=== PATIENT | female | born 1950 | race Caucasian/White ===

== ENCOUNTER → 2016-11-05 | Day surgery (SDC) | payer MEDICARE, OTHER ==
[~2016-11-05] MED LIST: ASPI81TA50 PO; CHOL100013 PO; CYAN10005 PO; DOXY40CP PO; ESTR1TAB4 PO; FLUT100D IH; IV RINGERS,LACTATED 1000ML 1,000 ML IV SCH; LEVO125T5 PO; LISI10TA2 PO; LORA10TA68 PO; PRAM0.255 PO; PROPOFOL 20 ML IV ONE; SERT100T PO; SUMA1TAB2 PO
[2016-11-05 10:45] VITALS: BP 143/79
== END | disposition home or self-care (01) ==
LOC: SURG 08:25
PROVIDERS: ATTEND Internal Medicine Gastroenterology
DX: Z12.11 Encounter for screening for malignant neoplasm of colon (principal); K64.0 First degree hemorrhoids; I10 Essential (primary) hypertension; E03.9 Hypothyroidism, unspecified; F32.9 Major depressive disorder, single episode, unspecified; F17.200 Nicotine dependence, unspecified, uncomplicated; Z86.39 Personal history of other endocrine, nutritional and metabolic disease
CPT/HCPCS: G0121; J2704

== ENCOUNTER 2019-09-10 11:34 | Emergency (ER) | payer MEDICARE, OTHER ==
[~2019-09-10] VITALS: Ht 165.1 cm; Wt 95.0 kg
[~2019-09-10 11:34] MED LIST changes: +ANAS1TAB47 PO; +CITA40TA12 PO; +CYAN-25 PO; -CYAN10005 PO; -IV RINGERS,LACTATED 1000ML 1,000 ML IV SCH; +POLY17PO29 PO; -PROPOFOL 20 ML IV ONE; +SERT50TA PO
[2019-09-10] MEDS ORDERED: fentaNYL PF VIAL 100 MCG/2 ML VIAL IVP ONE (12:30)
[2019-09-10] MEDS ORDERED: IV NORMAL SALINE 1000ML BAG 1,000 ML IV ONE (12:30)
[2019-09-10] MEDS ORDERED: ONDANSETRON PF 4 MG/2 ML VIAL. IVP ONE (12:30)
[2019-09-10 12:33] LABS: BASO # 0.1 x10^3/uL (0.0-0.2); BASO % 1 % (0-3); EOS # 0.2 x10^3/uL (0.0-0.7); EOS % 4 % (0-3); HEMATOCRIT 35.1 % (36.0-47.0); HEMOGLOBIN 11.7 g/dL (12.0-15.5); LYMPH # 0.9 x10^3/uL (1.0-4.8); LYMPH % 17 % (24-48); MEAN CORPUSCULAR HEMOGLOBIN 28 pg (25-35); MEAN CORPUSCULAR HGB CONC 33 g/dL (31-37); MEAN CORPUSCULAR VOLUME 83 fL (79-100); MONO # 0.6 x10^3/uL (0.0-1.1); MONO % 12 % (0-9); NEUT # 3.4 x10^3/uL (1.8-7.7); NEUT % 66 % (31-73); PLATELET COUNT 246 x10^3/uL (140-400); RED BLOOD COUNT 4.23 x10^6/uL (3.50-5.40); RED CELL DISTRIBUTION WIDTH 16.9 % (11.5-14.5); WHITE BLOOD COUNT 5.1 x10^3/uL (4.0-11.0)
[2019-09-10 12:42] LABS: CALCIUM 8.7 mg/dL (8.5-10.1); POTASSIUM 3.9 mmol/L (3.5-5.1)
[2019-09-10 12:48] LABS: ALBUMIN 3.6 g/dL (3.4-5.0); ALBUMIN/GLOBULIN RATIO 1.1 (1.0-1.7); MAGNESIUM 2.2 mg/dL (1.8-2.4); TOTAL BILIRUBIN 0.2 mg/dL (0.2-1.0); TOTAL PROTEIN 6.8 g/dL (6.4-8.2)
[2019-09-10 13:54] LABS: BILIRUBIN,URINE NEGATIVE (NEG); CLARITY,URINE CLEAR; COLOR,URINE YELLOW; NITRITE,URINE NEGATIVE (NEG); PH,URINE 7.5 (<5.0-8.0); PROTEIN,URINE NEGATIVE (NEG-TRACE); UROBILINOGEN,URINE 0.2 mg/dL (0.2 mg/dL)
[2019-09-10 14:07] LABS: BACTERIA,URINE 0 /HPF (0-FEW); RBC,URINE 0 /HPF (0-2); WBC,URINE 0 /HPF (0-4)
--- NOTE | 2019-09-10 14:58 | RAD ---
CT abdomen pelvis without contrast. HISTORY: Left flank pain CT scan the abdomen pelvis was done without contrast. There is mild atelectasis in both lung bases. There is no effusion. There are degenerative change in the lower lumbar spine. A liver lesion is not identified. There is no calcified gallstone. There is a small hiatus hernia. Spleen and adrenal gland on the left are normal. There is a 1.7 cm adrenal nodule on the right which is probably an adrenal adenoma but the CT numbers are not definitive for adenoma. There is a prominent benign simple cyst in the right kidney no further follow-up of the renal cyst would be warranted. There is mild right hydronephrosis and hydroureter. There are multiple phleboliths in the pelvis which limited evaluation. The bladder is distended. A right ureteral calculus is possible but all the densities could be phleboliths. A left ureteral calculus is not identified. Appendix is normal. Hydronephrosis could be related to a distended bladder. Intrarenal calculus is not identified. Small bowel pattern is normal without obstruction. Uterus is not enlarged. There is moderate stool in colon. There is degenerative disc disease in lower lumbar spine IMPRESSION: 1. Distended bladder. 2. Multiple phleboliths in the pelvis limited evaluation. 3. Mild dilatation renal collecting systems but a ureteral calculus is not definitely identified. 4. Left adrenal nodule probable adenoma but not definitive by CT numbers. PQRS Compliance Statement: One or more of the following individualized dose reduction techniques were utilized for this examination: 1. Automated exposure control 2. Adjustment of the mA and/or kV according to patient size 3. Use of iterative reconstruction technique Electronically signed by: Cirilo Russell MD (09/10/2019 2:55 PM) [facility]
[2019-09-10] MEDS ORDERED: KETOROLAC 30 MG/ML VIAL. IVP ONE (15:30)
[2019-09-10 16:14] VITALS: BP 150/80
[2019-09-10] MEDS ORDERED: HYDR-3164 PO (16:14)
[2019-09-10] MEDS ORDERED: HYDROmorphone 2 MG/ML VIAL IV ONE (16:15)
--- NOTE | 2019-09-10 16:15 | PHYS DOC ---
Past Medical History Past Medical History: Cancer, Depression, Hypertension, Hypothyroid, Migraines, Other Additional Past Medical Histor: R BREAST CA, GASTRITIS Past Surgical History: Other Additional Past Surgical Histo: R BREAST LUMPECTOMY Smoking Status: Never Smoker Alcohol Use: Occasionally General Adult EDM: Chief Complaint: HEAT EXPOSURE HPI: HPI: Patient is a 68 year old female who was brought here by EMS from home due to cramping all over her body, left flank pain. Patient says she was outside in the heat working in her garden when she started having cramping her back, left flank pain. Patient has history low back pain. Patient denies any bowel or bladder incontinence, no nausea vomiting, no injury. Patient denies any cough or fever. Review of Systems: Review of Systems: Constitutional: Denies fever or chills. [] Eyes: Denies change in visual acuity. [] HENT: Denies nasal congestion or sore throat. [] Respiratory: Denies cough or shortness of breath. [] Cardiovascular: Denies chest pain or edema. [] GI: Positive for left-sided abdominal pain, no nausea, vomiting, bloody stools or diarrhea. [] : Denies dysuria. [] Musculoskeletal: Positive for left flank pain, low back pain, joint cramping Integument: Denies rash. [] Neurologic: Denies headache, focal weakness or sensory changes. [] Endocrine: Denies polyuria or polydipsia. [] Lymphatic: Denies swollen glands. [] Psychiatric: Denies depression or anxiety. [] Heart Score: Risk Factors: Risk Factors: DM, Current or recent (<one month) smoker, HTN, HLP, family history of CAD, obesity. Risk Scores: Score 0 - 3: 2.5% MACE over next 6 weeks - Discharge Home Score 4 - 6: 20.3% MACE over next 6 weeks - Admit for Clinical Observation Score 7 - 10: 72.7% MACE over next 6 weeks - Early Invasive Strategies Current Medications: Current Medications Medications (Trade) Dose Ordered Sig/Hank Start Time Stop Time Status Last Admin Dose Admin Fentanyl Citrate (Fentanyl 2ml Vial) 50 mcg 1X ONCE 09/10/19 12:30 09/10/19 12:31 DC 09/10/19 12:50 50 MCG Hydromorphone HCl (Dilaudid) 1 mg 1X ONCE 09/10/19 16:15 09/10/19 16:16 UNV Ketorolac Tromethamine (Toradol 30mg Vial) 30 mg 1X ONCE 09/10/19 15:30 09/10/19 15:31 DC 09/10/19 15:25 30 MG Ondansetron HCl (Zofran) 4 mg 1X ONCE 09/10/19 12:30 09/10/19 12:31 DC 09/10/19 12:50 4 MG Sodium Chloride 1,000 ml @ 1,000 mls/hr 1X ONCE 09/10/19 12:30 09/10/19 13:29 DC 09/10/19 12:51 1,000 MLS/HR Allergies: Allergies: Allergies Coded Allergies Type Severity Reaction Last Updated Verified Sulfa (Sulfonamide Antibiotics) Allergy Intermediate 09/10/19 Yes erythromycin base Allergy Intermediate 09/10/19 Yes Physical Exam: PE: Constitutional: Well developed, well nourished, no acute distress, non-toxic appearance. [] HENT: Normocephalic, atraumatic, bilateral external ears normal, oropharynx moist, no oral exudates, nose normal. [] Eyes: PERRLA, EOMI, conjunctiva normal, no discharge. [] Neck: Normal range of motion, no tenderness, supple, no stridor. [] Cardiovascular:Heart rate regular rhythm, no murmur [] Lungs & Thorax: Bilateral breath sounds clear to auscultation [] Abdomen: Bowel sounds normal, soft, no tenderness, no masses, no pulsatile masses. [] Skin: Warm, dry, no erythema, no rash. [] Back: No tenderness, no CVA tenderness. [] Extremities: No tenderness, no cyanosis, no clubbing, ROM intact, no edema. [] Neurologic: Alert and oriented X 3, normal motor function, normal sensory function, no focal deficits noted. [] Psychologic: Affect normal, judgement normal, mood normal. [] Current Patient Data: Labs: Laboratory Tests Test 09/10/19 11:40 09/10/19 13:45 White Blood Count 5.1 x10^3/uL (4.0-11.0) Red Blood Count 4.23 x10^6/uL (3.50-5.40) Hemoglobin 11.7 g/dL (12.0-15.5) L Hematocrit 35.1 % (36.0-47.0) L Mean Corpuscular Volume 83 fL (79-100) Mean Corpuscular Hemoglobin 28 pg (25-35) Mean Corpuscular Hemoglobin Concent 33 g/dL (31-37) Red Cell Distribution Width 16.9 % (11.5-14.5) H Platelet Count 246 x10^3/uL (140-400) Neutrophils (%) (Auto) 66 % (31-73) Lymphocytes (%) (Auto) 17 % (24-48) L Monocytes (%) (Auto) 12 % (0-9) H Eosinophils (%) (Auto) 4 % (0-3) H Basophils (%) (Auto) 1 % (0-3) Neutrophils # (Auto) 3.4 x10^3/uL (1.8-7.7) Lymphocytes # (Auto) 0.9 x10^3/uL (1.0-4.8) L Monocytes # (Auto) 0.6 x10^3/uL (0.0-1.1) Eosinophils # (Auto) 0.2 x10^3/uL (0.0-0.7) Basophils # (Auto) 0.1 x10^3/uL (0.0-0.2) Sodium Level 137 mmol/L (136-145) Potassium Level 3.9 mmol/L (3.5-5.1) Chloride Level 103 mmol/L (98-107) Carbon Dioxide Level 25 mmol/L (21-32) Anion Gap 9 (6-14) Blood Urea Nitrogen 18 mg/dL (7-20) Creatinine 1.0 mg/dL (0.6-1.0) Estimated GFR (Cockcroft-Gault) 55.0 BUN/Creatinine Ratio 18 (6-20) Glucose Level 122 mg/dL (70-99) H Calcium Level 8.7 mg/dL (8.5-10.1) Magnesium Level 2.2 mg/dL (1.8-2.4) Total Bilirubin 0.2 mg/dL (0.2-1.0) Aspartate Amino Transferase (AST) 20 U/L (15-37) Alanine Aminotransferase (ALT) 26 U/L (14-59) Alkaline Phosphatase 102 U/L (46-116) Creatine Kinase 122 U/L (26-192) Total Protein 6.8 g/dL (6.4-8.2) Albumin 3.6 g/dL (3.4-5.0) Albumin/Globulin Ratio 1.1 (1.0-1.7) Urine Collection Type Unknown Urine Color Yellow Urine Clarity Clear Urine pH 7.5 (<5.0-8.0) Urine Specific [place] 1.010 (1.000-1.030) Urine Protein Negative mg/dL (NEG-TRACE) Urine Glucose (UA) Negative mg/dL (NEG) Urine Ketones (Stick) Negative mg/dL (NEG) Urine Blood Negative (NEG) Urine Nitrite Negative (NEG) Urine Bilirubin Negative (NEG) Urine Urobilinogen Dipstick 0.2 mg/dL (0.2 mg/dL) Urine Leukocyte Esterase Negative (NEG) Urine RBC 0 /HPF (0-2) Urine WBC 0 /HPF (0-4) Urine Squamous Epithelial Cells None /LPF Urine Bacteria 0 /HPF (0-FEW) Urine Mucus Slight /LPF Laboratory Tests 09/10/19 11:40 Laboratory Tests 09/10/19 11:40 Vital Signs: Vital Signs Date Time Temp Pulse Resp B/P (MAP) Pulse Ox O2 Delivery O2 Flow Rate FiO2 09/10/19 13:00 50 179/82 (114 97 Room Air 09/10/19 12:50 16 09/10/19 11:35 98.1 98.1 EKG: EKG: [] Radiology/Procedures: Radiology/Procedures: [] Impression: [facility] [address] [facility] [place], [place] [id number] IMAGING REPORT Signed PATIENT: GLADIS ANGELO ACCOUNT: [id number] : 1950 LOCATION: ER AGE: 68 SEX: F EXAM STATUS: REG ER ORD. PHYSICIAN: HERMELINDA PALAFOX DO REASON: LEFT FLANK PAIN PROCEDURE: CT ABDOMEN PELVIS WO CONTRAST CT abdomen pelvis without contrast. HISTORY: Left flank pain CT scan the abdomen pelvis was done without contrast. There is mild atelectasis in both lung bases. There is no effusion. There are degenerative change in the lower lumbar spine. A liver lesion is not identified. There is no calcified gallstone. There is a small hiatus hernia. Spleen and adrenal gland on the left are normal. There is a 1.7 cm adrenal nodule on the right which is probably an adrenal adenoma but the CT numbers are not definitive for adenoma. There is a prominent benign simple cyst in the right kidney no further follow-up of the renal cyst would be warranted. There is mild right hydronephrosis and hydroureter. There are multiple phleboliths in the pelvis which limited evaluation. The bladder is distended. A right ureteral calculus is possible but all the densities could be phleboliths. A left ureteral calculus is not identified. Appendix is normal. Hydronephrosis could be related to a distended bladder. Intrarenal calculus is not identified. Small bowel pattern is normal without obstruction. Uterus is not enlarged. There is moderate stool in colon. There is degenerative disc disease in lower lumbar spine IMPRESSION: 1. Distended bladder. 2. Multiple phleboliths in the pelvis limited evaluation. 3. Mild dilatation renal collecting systems but a ureteral calculus is not definitely identified. 4. Left adrenal nodule probable adenoma but not definitive by CT numbers. PQRS Compliance Statement: One or more of the following individualized dose reduction techniques were utilized for this examination: 1. Automated exposure control 2. Adjustment of the mA and/or kV according to patient size 3. Use of iterative reconstruction technique Electronically signed by: Cirilo Russell MD (09/10/2019 2:55 PM) [facility] DICTATED and SIGNED BY: CIRILO RUSSELL MD DATE: 09/10/19 1455 Course & Med Decision Making: Course & Med Decision Making Pertinent Labs and Imaging studies reviewed. (See chart for details) [] Dragon Disclaimer: Dragjavier Disclaimer: This electronic medical record was generated, in whole or in part, using a voice recognition dictation system. Departure Departure Impression: Primary Impression: Flank pain Additional Impression: Cramp, heat Disposition: 01 HOME, SELF-CARE Condition: IMPROVED Referrals: RICHI GREEN MD (PCP) PLEASE CALL YOUR DOCTOR FOR FOLLOW UP THIS WEEK ABOUT YOUR ABDOMINAL PAIN Patient Instructions: Flank Pain Additional Instructions: Thank you for visiting our Emergency Department. We appreciate you trusting us with your care. If any additional problems come up don't hesitate to return to visit us. Please follow up with your primary care provider so they can plan additional care if needed and know about the problem that you had. If symptoms worsen come back to the Emergency Department. Any concerning symptoms that start such as chest pain, shortness of air, weakness or numbness on one side of the body, running high fevers or any other concerning symptoms return to the ER. Scripts Hydrocodone/Apap 5-325 (NORCO 5-325 TABLET) 1 Each Tablet 1 TAB PO PRN Q6HRS PRN for PAIN, #15 TAB 0 Refills Prov: HERMELINDA PALAFOX DO 09/10/19 Justicifation of Admission Dx: Justifications for Admission: Justification of Admission Dx: N/A HERMELINDA PALAFOX DO Sep 10, 2019 16:15
--- NOTE | 2019-09-11 15:03 | EKG ---
[facility] [address] [place] [address] Test Date: 2019-09-10 Test Time: 11:39:52 Pat Name: GLADIS ANGELO Department: Room: Gender: F Field Identification Specialist: : 1950 Requested By: HERMELINDA PALAFOX Order Number: [id number] Reading MD: Measurements Intervals [place] Rate: 50 P: 32 WA: 186 QRS: 23 QRSD: 80 T: 43 QT: 450 QTc: 413 Interpretive Statements SINUS RHYTHM NORMAL ECG RI6.02 No previous ECG available for comparison
== END 2019-09-10 16:38 | disposition home or self-care (01) ==
LOC: ER 11:34
DX: R10.9 Unspecified abdominal pain (principal); M54.5 Low back pain; F32.9 Major depressive disorder, single episode, unspecified; I10 Essential (primary) hypertension; E03.9 Hypothyroidism, unspecified; G43.909 Migraine, unspecified, not intractable, without status migrainosus; Z85.9 Personal history of malignant neoplasm, unspecified; Z98.890 Other specified postprocedural states; Z88.1 Allergy status to other antibiotic agents; Z88.2 Allergy status to sulfonamides; Z79.899 Other long term (current) drug therapy
CPT/HCPCS: 36415; 74176; 80053; 81001; 82550; 83735; 85025; 93005; 96361; 96374; 96375; 99285; J1170; J1885; J2405; J3010; J7030